=== PATIENT | female | born 1970 | race Caucasian/White ===

== ENCOUNTER 2017-12-31 23:34 | Emergency (ER) | payer BC, OTHER ==
[2018-01-01] MEDS ORDERED: Morphine 10 MG/ML VIAL ONE (00:06)
[2018-01-01] MEDS ORDERED: Ondansetron ODT 8 MG TAB ONE (00:07)
[2018-01-01] MEDS ORDERED: Promethazine HCl 25 MG/ML VIAL ONE (01:36)
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
== END 2018-01-01 02:05 | disposition home or self-care (01) ==
LOC: ERS 23:34
DX: S20.212A Contusion of left front wall of thorax, initial encounter (principal); S50.11XA Contusion of right forearm, initial encounter; S80.11XA Contusion of right lower leg, initial encounter; F90.9 Attention-deficit hyperactivity disorder, unspecified type; V89.2XXA Person injured in unspecified motor-vehicle accident, traffic, initial encounter
CPT/HCPCS: 96372; J2270; J2550

== ENCOUNTER 2018-01-26 09:33 | Day surgery (SDC) | payer BC ==
[2018-01-26 10:15] LABS: #Basophils 0.1 thou/uL (0.0-0.2); #Eosinphils 0.1 thou/uL (0.0-0.7); #Lymphocytes 1.9 thou/uL (1.20-3.40); #Monocytes 0.6 thou/uL (0.11-0.59); %Basophils 1.1 % (0.0-1.0); %Eosinophils 1.4 % (0.0-10.0); %Lymphocytes 28.2 % (21.0-51.0); %Monocytes 8.7 % (0.0-10.0); %Neutrophils 60.6 % (42.0-75.0); Hemoglobin 15.1 g/dL (12.0-16.0); Mean Corpuscular HGB CONC 35.4 g/dL (32.0-36.0); Mean Corpuscular Hemoglobin 34.2 pg (27.0-31.0); Mean Corpuscular Volume 96.6 fL (78.0-98.0); Mean Platelet Volume 8.6 fL (7.4-10.4); Platelet Count 285 thou/uL (130-400); RBC Distribution Width 11.1 % (11.5-14.5); Red Blood Cell (RBC) Count 4.41 mill/uL (4.20-5.40); White Blood Cell (WBC) Count 6.6 thou/uL (4.8-10.8)
[2018-01-26] MEDS ORDERED: Ondansetron ODT 8 MG TAB ONE (10:15)
[2018-01-26 10:29] LABS: BHCG - Serum Negative (NEGATIVE); Pregs Control Background? CLEAR/WHITE (CLR/WHITE); Pregs Control Bar Appear? YES (CONTROL BAR)
[2018-01-26 10:34] LABS: ALT (SGPT) 19 U/L (8-55); AST (SGOT) 18 U/L (5-34); Albumin 4.3 g/dL (3.5-5.0); Alkaline Phosphatase 95 U/L (40-150); Anion Gap 10 mmol/L (10-20); BUN (Urea Nitrogen) 7 mg/dL (7.0-18.7); Bilirubin, Total 0.6 mg/dL (0.2-1.2); CK (CPK) 71 U/L (29-168); Calc. Creatinine Clearance 0 mL/min (70-130); Calcium 9.2 mg/dL (7.8-10.44); Carbon Dioxide 27 mmol/L (22-29); Chloride 105 mmol/L (98-107); Estimated GFR-MDRD 81; Globulin 3.1 g/dL (2.4-3.5); Glucose 101 mg/dL (70-105); Lipase 26 U/L (8-78); Potassium 3.6 mmol/L (3.5-5.1); Protein, Total 7.4 g/dL (6.0-8.3); Sodium 138 mmol/L (136-145)
[2018-01-26 10:41] LABS: CKMB 1.1 ng/mL (0-6.6); Troponin I Less than 0.010 ng/mL (< 0.028)
[2018-01-26 11:27] LABS: Bilirubin Negative (Negative); Blood, Urine Negative (Negative); Glucose, Urine (Dipstick) Negative (Negative); Leukocyte Negative (Negative); Nitrite Negative (Negative); Protein, Urine (Dipstick) Negative (Neg-Trace); Urobilinogen 0.2 mg/dL (0.2-1.0); pH, Urine 7.5 (5.0-9.0)
[2018-01-26 11:29] LABS: Clarity Clear (Clear)
--- NOTE | 2018-01-26 11:38 | ULT ---
RIGHT UPPER QUADRANT ULTRASOUND: Date: 01-26-18 History: Right upper quadrant pain, back pain. Comparison: 05-03-16 FINDINGS: There is a small echogenic focus seen at the fundus of the gallbladder lumen measuring 0.7 cm. This m ay represent a polyp but this would be larger than expected for a normal gallbladder polyp. The gallb ladder wall thickness is at the upper limits of normal with a more focal area of thickening involving the gallbladder wall adjacent to the liver which measures 0.7 cm. This focal area of thickening was also present on prior study in 2016. No gallbladder calculi are seen. There is no pericholecystic flu id. The common duct measures 0.3 cm in diameter. The majority of the pancreas is obscured by bowel gas and not well evaluated. Visualized portion of the IVC, liver, and right kidney demonstrate a normal sonographic appearance. T he right kidney measures 10.6 cm in length. Education Coordinator does note a positive sonographic Willis sign. IMPRESSION: 1. Focal area of gallbladder wall thickening; this area of thickening was also noted on prior study i n 2015. The remainder of the gallbladder wall thickness is at the upper limits of normal to borderlin e increased. There is an echogenic focus seen in the fundus of the gallbladder wall, which on prior C T exam on 05-03-16 demonstrated focal calcification in this region which may represent a focal calcif ication within the wall of the fundus of the gallbladder; although, there is no posterior shadowing a nd this could represent a gallbladder polyp. Exact etiology for gallbladder wall thickening is uncert ain. Findings could be related to cholecystitis in the correct clinical scenario; although, hypoprote inemia, liver disease versus other etiologies are also differential considerations for gallbladder wa ll thickening. 2. Common duct is normal in caliber. POS: DAPHNE
--- NOTE | 2018-01-26 12:41 | HP ---
HISTORY OF PRESENT ILLNESS: Beth Benz is a 47-year-old female who works out of her home, mostly c [employer] work. She has experienced for the last 5-7 days right upper quadrant pain, flank pain, nause a, indigestion. She has had previous episodes of this, although not as long lasting. She was seen i n the emergency room by Dr. Leach. An ultrasound revealed a density in gallbladder which was seen pre viously on CAT scan. She is noted to have a sonographic positive Willis sign and ongoing right upper quadrant tenderness. Her liver function tests are normal. ALLERGIES: None. TOBACCO: None. ALCOHOL: Rarely. MEDICATIONS: None routinely. PAST SURGICAL HISTORY: Three C-sections in the past. PAST MEDICAL HISTORY: Pericarditis treated with a pericardiocentesis, steroids, allopurinol, followe d by Dr. Herman, now completely resolved. REVIEW OF SYSTEMS: Ten point noncontributory. FAMILY HISTORY: Noncontributory. PHYSICAL EXAMINATION: VITAL SIGNS: Weight 63 kilograms, 168/93, 87, 18, 97.7 degrees. HEENT: Unremarkable. Sclerae nonicteric. SKIN: Nonjaundiced. LUNGS: Clear to auscultation. CARDIAC: Regular rate and rhythm without murmur or gallop. ABDOMEN: Soft, tenderness in right upper quadrant with guarding and rebound, positive Willis's. EXTREMITIES: Unremarkable. No ankle edema. Good pedal pulses. LYMPH: No lymphadenopathy neck, groin, axilla. LABORATORY: Laboratories are normal; CBC, liver function test, base met. ASSESSMENT AND PLAN: Cholecystitis, cholelithiasis. We will plan administration of Levaquin, n.p.o. , normal saline 100 per hour, laparoscopic cholecystectomy. Risk and benefits explained, she consent s.
[2018-01-26] MEDS ORDERED: Scopolamine 1.5 mg/72 hour Patch ONE (12:58)
[2018-01-26] MEDS ORDERED: Ketorolac Tromethamine 30 MG/ML VIAL ONE (12:58)
[2018-01-26] MEDS ORDERED: Levofloxacin 500 mg/D5W 100 ml Premix Bag ONE (12:59)
[2018-01-26] MEDS ORDERED: Glycopyrrolate 0.2 MG/ML 5 ML SYRINGE ONE (13:01)
[2018-01-26] MEDS ORDERED: PHENYLEPHRINE-NS 100 MCG/ML 10 ML SYRINGE ONE (13:01)
[2018-01-26] MEDS ORDERED: Dexamethasone 20 MG/5 ML VIAL ONE (13:01)
[2018-01-26] MEDS ORDERED: Succinylcholine Chloride 20 MG/ML 10 ml SYRINGE FS ONE (13:01)
[2018-01-26] MEDS ORDERED: PROPOFOL 200 MG/20 ML VIAL ONE (13:01)
[2018-01-26] MEDS ORDERED: Lidocaine 1% PF 5 ML VIAL ONE (13:01)
[2018-01-26] MEDS ORDERED: Ondansetron HCl/PF 4 MG/2 ML Vial ONE (13:01)
[2018-01-26] MEDS ORDERED: Labetalol 100 MG/20 ML MDV ONE (13:01)
[2018-01-26] MEDS ORDERED: ePHEDrine/0.9% NaCl/PF SYRINGE 50 mg/10 ml ONE (13:01)
[2018-01-26] MEDS ORDERED: Metoclopramide HCl 10 MG/2 ML VIAL ONE (13:01)
[2018-01-26] MEDS ORDERED: Fentanyl 100 MCG/2 ML VIAL ONE ×2 (13:24→16:46)
[2018-01-26] MEDS ORDERED: Promethazine HCl 25 MG/ML VIAL ONE (14:13)
[2018-01-26] MEDS ORDERED: Fentanyl 250 MCG/5 ML VIAL ONE (15:03)
[2018-01-26] MEDS ORDERED: Midazolam HCl 2 mg/2 ml Vial ONE (15:03)
[2018-01-26] MEDS ORDERED: Bupivacaine HCl 0.5%/Epinephrine 1:200,000/PF 30 ml Vial ONE (15:08)
--- NOTE | 2018-01-26 21:29 | OP ---
DATE OF OPERATION: 01/26/2018 PREOPERATIVE DIAGNOSES: Cholecystitis, cholelithiasis. POSTOPERATIVE DIAGNOSES: Cholecystitis, cholelithiasis. PROCEDURE: Laparoscopic video cholecystectomy. SURGEON: Aubrey Alarcon M.D. ANESTHESIA: General. Local 0.5% Marcaine with epinephrine 30 mL. PROCEDURE IN DETAIL: Patient was taken to the operating room where under general anesthesia, abdomen was prepared with ChloraPrep, draped in routine fashion. Local anesthetic 0.5% Marcaine with epinep hrine, infiltrated into the skin and subcutaneous tissue about each port site. Infraumbilical incisi on was made. Pneumoperitoneum to 15 mmHg obtained with the Veress needle, replacing it with a 5 port , laparoscope inserted. Right subxiphoid was incision made and 11 ports placed. Right subcostal inc ision was made, mid clavicular anterior axillary lines and 5 ports placed. Liver appeared to be norm al. Gallbladder was distended. Fundus grasped and reflected cephalad. Infundibulum grasped and ref lected laterally. Cystic artery and duct dissected free. Critical view obtained. Cystic artery and duct doubly clipped proximally, divided, and gallbladder dissected free obtaining good hemostasis pr ior to division of final peritoneal attachments. Gallbladder and contents removed and submitted to P athology. Good hemostasis ensured. Irrigant and pneumoperitoneum evacuated. All instruments remove d and all skin incisions approximated with interrupted subdermal 4-0 Monocryl and DermaGlue applied. The patient tolerated the procedure well.
== END 2018-01-26 19:15 | disposition home or self-care (01) ==
LOC: ERS 09:33 → SDC 14:07
PROVIDERS: ATTEND Specialist
PROC: 0FT44ZZ Resection of Gallbladder, Percutaneous Endoscopic Approach (ICD-10-PCS; principal; 2018-01-26)
DX: K81.1 Chronic cholecystitis (principal); Z88.8 Allergy status to other drugs, medicaments and biological substances
CPT/HCPCS: 76705; 80053; 81003; 82550; 82553; 83690; 84484; 84703; 85025; 88304; 93005; 96361; 96372; 96374; 96375; J0131; J0670; J1100; J1885; J1956; J2001; J2250; J2270; J2405; J2550; J2704; J2765; J3010

== ENCOUNTER 2019-10-05 14:30 | Outpatient (CLI) | payer OTHER ==
--- NOTE | 2019-10-05 14:46 | RAD ---
CHEST 2 VIEWS: Date: 10/05/2019 HISTORY: Shortness of breath. COMPARISON: 05/24/2016. FINDINGS: Heart size is normal. The lungs are clear. IMPRESSION: No significant acute intrathoracic disease. POS: RRE
== END 2019-10-05 14:31 | disposition home or self-care (01) ==
LOC: BICRAD 14:30
PROVIDERS: ATTEND Family Medicine
DX: R06.02 Shortness of breath (principal)
CPT/HCPCS: 71046

== ENCOUNTER 2020-01-06 20:21 | Emergency (ER) | payer OTHER, SELFPAY ==
[2020-01-06] MEDS ORDERED: Adacel (T-DAP) 0.5 ML SYRINGE ONE (20:36)
[2020-01-06] MEDS ORDERED: Bacitracin 1 PK ONE (20:36)
== END 2020-01-06 20:53 | disposition home or self-care (01) ==
LOC: ERS 20:21
DX: S61.451A Open bite of right hand, initial encounter (principal); S61.411A Laceration without foreign body of right hand, initial encounter; W54.0XXA Bitten by dog, initial encounter
CPT/HCPCS: 90715

== ENCOUNTER 2023-04-27 17:58 | Emergency (ER) | payer OTHER ==
[2023-04-27 18:23] LABS: #Eosinphils 0.1 thou/uL (0.0-0.7); #Monocytes 0.6 thou/uL (0.11-0.59); #Neutrophils 5.2 thou/uL (1.40-6.50); %Basophils 0.4 % (0.0-1.0); %Eosinophils 0.9 % (0.0-10.0); %Lymphocytes 30.6 % (21.0-51.0); %Monocytes 6.4 % (0.0-10.0); %Neutrophils 61.3 % (42.0-75.0); Hematocrit 37.9 % (36.0-47.0); Hemoglobin 13.4 g/dL (12.0-16.0); Mean Corpuscular HGB CONC 35.4 g/dL (32.0-36.0); Mean Corpuscular Hemoglobin 32.8 pg (27.0-31.0); Mean Corpuscular Volume 92.7 fl (78.0-98.0); Mean Platelet Volume 10.7 fL (7.4-10.4); Platelet Count 285 10x3/uL (130-400); RBC Distribution Width 12.4 % (11.5-14.5); Red Blood Cell (RBC) Count 4.09 mill/uL (4.20-5.40); White Blood Cell (WBC) Count 8.5 10x3/uL (4.8-10.8)
[2023-04-27 18:45] LABS: ALT (SGPT) 61 U/L (8-55); AST (SGOT) 34 U/L (5-34); Albumin 4.5 g/dL (3.5-5.0); Alkaline Phosphatase 160 U/L (40-110); Anion Gap 15 mmol/L (10-20); BUN (Urea Nitrogen) 17 mg/dL (9.8-20.1); Bilirubin, Total 0.2 mg/dL (0.2-1.2); Calc. Creatinine Clearance 0 mL/min (70-130); Calcium 8.8 mg/dL (7.8-10.44); Carbon Dioxide 23 mmol/L (22-29); Chloride 106 mmol/L (98-107); Estimated GFR 93; Globulin 2.4 g/dL (2.4-3.5); Glucose 111 mg/dL (70-105); Potassium 3.7 mmol/L (3.5-5.1); Protein, Total 6.9 g/dL (6.0-8.3); Sodium 140 mmol/L (136-145)
[2023-04-27 18:48] LABS: Troponin I 0.013 ng/mL (< 0.028)
[2023-04-27] MEDS ORDERED: HYDROcodone/Acetaminophen 5/325 mg Tablet ONE (19:28)
[2023-04-27 20:22] LABS: SARS-CoV-2 NAA Rapid Test Not Detected (NotDetected)
== END 2023-04-27 21:46 | disposition home or self-care (01) ==
LOC: ERS 17:58
DX: M54.9 Dorsalgia, unspecified (principal); M79.18 Myalgia, other site; R09.81 Nasal congestion; Z20.822 Contact with and (suspected) exposure to COVID-19
CPT/HCPCS: 71045; 71275; 80053; 83880; 84484; 85025; 93005